=== PATIENT | male | born 1960 | race Caucasian/White ===

== ENCOUNTER 2022-08-24 09:07 | Outpatient (CLI) | payer BC, SELFPAY ==
--- NOTE | 2022-08-24 09:37 | ECG_ITS ---
Measurements Intervals [place] Rate: 71 P: 60 NH: 184 QRS: 23 QRSD: 101 T: 41 QT: 349 QTc: 379 Interpretive Statements SINUS RHYTHM INCOMPLETE RIGHT BUNDLE BRANCH BLOCK BORDERLINE ECG NO PREVIOUS ECG AVAILABLE FOR COMPARISON Electronically Signed On 08-24-2022 10:10:26 [employer] by Flo Dos Santos D.O.
== END 2022-08-24 09:08 | disposition home or self-care (01) ==
LOC: ANHLAB 09:09
PROVIDERS: PCP Emergency Medicine; Visit Provider Anesthesiology
DX: K42.9 Umbilical hernia without obstruction or gangrene (principal); F17.200 Nicotine dependence, unspecified, uncomplicated; Z01.818 Encounter for other preprocedural examination; I45.10 Unspecified right bundle-branch block
CPT/HCPCS: 36415; 86850; 86900; 86901; 93005

== ENCOUNTER 2022-08-30 02:48 | Day surgery (SDC) | payer BC, SELFPAY ==
[2022-08-20 13:21] VITALS: BMI 31.4
--- NOTE | 2022-08-20 13:47 | PC.NURSE ---
Report to the Outpatient Waiting Room, entrance under the green pavilion located off [facility], at time 1100 on date 08/30/22 Planned Procedure Time: 1300. Time changes happen often and if your time is changed the preop area will call you the afternoon before. - You and your visitor will be asked to self-screen and do not enter if you have any COVID symptoms. - Only one visitor is requested with a max of two and NO children visitors are allowed at this time. - The patient visitor may be requested to leave or wait in car when not with patient due to distancing restrictions. - A mask is optional within the hospital. Patients may have clear liquids (water, carbonated beverages, clear teas, apple juice) until 3 hours prior to surgery with a maximum of 20 ounces. - No food from midnight until time of surgery - Infants may have breast milk until 4 hours before surgery, formula 6 hours prior to surgery. - Children will be allowed to drink immediately following surgery. If applicable, please bring a bottle or sippy cup to assist with drinking. Juice, water, soda, and popsicles are readily available. For infants on formula, please bring formula the day of surgery. Pacifiers are allowed. Take the following medications with a SIP of water the morning of surgery: Medications to discontinue per physician _multivitamin Date to take last dose_08/27/22 Please no make-up, nail malagasy, hairspray, perfume, deodorant, or body powder the day of surgery. No jewelry (including any body piercings) or valuables the day of surgery, leave them at home. Please take a shower or bath the night before, or the morning of, surgery with an antibacterial soap. Wear comfortable, loose fitting clothing. Children are encouraged to wear pajamas. - Jewelry must be removed prior to entering the operating room. Rings and piercings that are not removed may be cut off. - The hospital will not accept responsibility for valuables. - Please leave all valuables, including medications, at home the day of surgery. If you are going home after surgery, a licensed putaway driver must drive you home. - NO public transportation without another adult if you receive anesthesia. - We recommend that an adult stay with you for 24 hours following discharge. - We also recommend that you do not drive, make important decision, drink alcoholic beverages, or take any drugs that were not prescribed by your health care provider for at least 24 hours after your discharge time. For Pediatric surgeries, we recommend two adults accompany the child home. Follow any additional instructions given to you from your surgeon. If you or anyone in your household have experienced Covid symptoms in the past week, please notify your surgeon or the nurse liaison at the phone number below for possible testing. Telephone instructions given to King Bess and asked if any additional questions and then verbalized understanding. Patient advised to call surgeon office or pre surgery nurse liaison [phone] if any additional questions.
[2022-08-30] VITALS (8 sets, daily range): BP systolic 126–150; BP diastolic 70–85; PULSE 56–76; RESP 12–17; TEMP 36.1–36.6; O2SAT 100
--- NOTE | 2022-08-30 07:08 | WPDHPUPDATE1 ---
History and Physical Update Update Date/Time: 08/30/22 07:08 History and Physical has been reviewed, including an updated exam of the patient. There are NO changes in the patient's condition. Risks, benefits, and alternatives have been discussed and questions answered. Patient agrees to proceed with procedure.
--- NOTE | 2022-08-30 12:17 | WPDANESEPPF ---
Anes - Initial Pre Proc Eval Procedure: Operation Date: 08/30/22 13:00 Proposed Procedures p Robotic Laparoscopic Repair Umbilical Hernia with Mesh - Crow Bundy MD Date/Time: 08/30/22 12:17 Surgeon: Crow Bundy MD Pre Op Diagnosis: umbilical hernia Patient Data Age: 62 Gender: M Height: 1.91 m Weight: 114 kg Allergies Allergy/AdvReac Type Severity Reaction Status Date / Time Penicillins Allergy Unknown Other Verified 08/12/22 14:02 Home Medications Medication Instructions Recorded Confirmed Type multivit with minerals-iron 18 1 tablet PO DAILY 08/20/22 08/20/22 History mg-folic ac 400 mcg-vit K 25 mcg tablet (Adults Multivitamin) Patient hx anesthesia problems: none Family hx anesthesia problems: none Results Review: All pre-operative results and documents have been reviewed as part of the pre-operative evaluation. FORMERLY [facility], [facility] Past Medical History Medical History (Updated 08/12/22 @ 14:16 by Jacinda Carbajal) Hypertension Surgical History Surgical History (Updated 08/12/22 @ 14:01 by BRITTANY Thornton) Hx of shoulder surgery Hx of tonsillectomy Family History Family History (Updated 08/12/22 @ 14:02 by BRITTANY Thornton) Other Brain tumor Social History Social History (Updated 08/12/22 @ 14:27 by Jacinda Carbajal) Smoking packs per day: 1 Smoking cigarettes per day: 20.0 Years smoked: 20 Smoking pack-years: 20.00 Smoking status: Former smoker Tobacco type: cigarettes Smoking end date: 08/04/07 Alcohol intake: never Substance use: never Living arrangements: with family Spiritual care concerns: No Anes - Eval Final PreProcedure Day of Procedure 08/30/22 12:17 Patient weight: obese Heart: regular rate and rhythm Lungs: clear to auscultation and normal air movement Airway: Mallampati scale class II Neurological: alert and oriented Last oral intake: >/= 8 hours ASA classification: II Emergent: no Anesthetic plan: proceed Anesthesia type and monitoring: general ETT Results Review: All pre-operative results and documents have been reviewed as part of the pre-operative evaluation. Informed Consent: The patient's anesthetic plan and its attendant risks and benefits were discussed with the patient/family/POA. Questions were solicited and answers provided to the satisfaction of the patient/family/POA.
[2022-08-30] MEDS: ACETAMINOPHEN 500 MG TABLET 1000 MG PO (12:50)
[2022-08-30] MEDS: KETOROLAC 15 MG/ML VIAL (*BKC) IV PUSH (12:50)
[2022-08-30] MEDS: LACTATED RINGERS 1,000 ML 30 ML IV CONT ×2 (13:02→17:25)
[2022-08-30] MEDS: ceFAZolin 2 GM/D5W 50 ML 2 GM/50 ML BAG IVPB (15:19)
[2022-08-30] MEDS: BUPIVACAINE/EPINEPHRINE 0.5% 30 ML VIAL INFILTRATE (15:51)
--- NOTE | 2022-08-30 17:26 | P.OP_ITS ---
Procedure Note - Detailed Date of Procedure 08/30/22 Pre-op Diagnosis umbilical hernia Post-op Diagnosis Same Procedure Performed Robotic assisted laparoscopic repair of 3 cm umbilical hernia with mesh Surgeon Crow Bundy MD [employer] Ed HULL Anesthesia General and Local (0.5% Marcaine with epinephrine) Indications Patient is a 62-year-old man with a large umbilical hernia. It has been getting larger and is occasionally painful when it is bulging. It has been reducible. He is taken to surgery now for robotic assisted laparoscopic repair Findings Showed a 3 cm umbilical hernia defect. Description of Procedure Patient was checked in the preoperative holding area. He was taken to surgery and induced into general anesthesia. The abdomen was prepped and draped. Init ial trocar was a 5 mm applied Medical optical trocar in the left subcostal position. This was placed and insufflation carried out. Under direct visualization 2 8 mm left lateral ports were then placed. We then exchanged the 5 mm port for an 8 mm robotic port as well. The robot was brought into the field and docked. The surgeon then went to the console. The hernia defect was easily found. It had fortunately reduced almost entirely. Some additional fatty tissue and the hernia sac was then reduced. The peritoneum was incised just a cm or so outside of the hernia defect and this peritoneum as well as the herniated contents were carefully dissected free. Care was taken not to injure the umbilical skin. Eventually the entire hernia and any fatty tissue associated with it was reduced and dropped back into the abdomen. The defect itself was 3 cm in length. 0 Stratafix suture was then used and the hernia defect was sutured closed. The mesh was introduced. The into the Stratafix s uture was then placed in the center of the mesh and the mesh was secured to the anterior abdominal wall. Two 0 V lock suture was then used. A running suture of the lock was used to suture the outer edge of the mesh to the peritoneum. Three of these V lock suture were required to completely suture the outer edge to the peritoneum. Mesh was in good position and quite flat against the peritoneal surface. We inspected the areas of the surgery and all looked good. All needles in residual suture material were removed. Surgical instruments were removed and the robot was undocked. The trocars were removed and the skin incisions were closed with subcuticular 4-0 Monocryl skin suture. A cotton ball and 4 x 4 replaced in the umbilicus with a transparent dressing over it. Patient was awakened and taken to recovery in good condition. Sponge and needle counts were correct x2. Implants Ventralight ST mesh 10 x 15 cm cut to an 8 cm chemehuevi. Estimated Blood Loss -5 Pathology None sent Complications No immediate complications Condition Stable Disposition PACU [facility] Billing Surgery - Charge Forward: Surgery Billing (Robotic assisted laparoscopic repair 3 cm umbilical hernia with underlay Ventralight ST mesh)
[2022-08-30] MEDS: HYDROmorphone HCL INJ (*CRX) 1 MG/ML SYR 0.25 MG IV PUSH ×3 (18:05→18:11)
[2022-08-30] MEDS: oxyCODONE HCL (*CRX) 5 MG TAB IR PO (18:57)
== END 2022-08-30 19:25 | disposition home or self-care (01) ==
PROVIDERS: PCP Emergency Medicine; Visit Provider Surgery
PROC: (CPT 49593; principal; 2022-08-30 13:00)
DX: K42.9 Umbilical hernia without obstruction or gangrene (principal); Z87.891 Personal history of nicotine dependence; E66.9 Obesity, unspecified; Z68.31 Body mass index [BMI] 31.0-31.9, adult
CPT/HCPCS: 49593; S2900; A9270; C1781; J0690; J1100; J1170; J1885; J2250; J2270; J2405; J2704; J2710; J3010; J7120